=== PATIENT | male | born 1950 | race American Indian/Alaskan Native ===

== ENCOUNTER 2021-07-25 08:44 | Emergency (ER) | payer OTHER ==
[2021-07-25] MEDS ORDERED: dexAMETHasone 4 MG/ML VIAL IM ONE (09:06)
[2021-07-25] MEDS ORDERED: KETOROLAC 10 MG TAB PO ONE (09:07)
--- NOTE | 2021-07-25 09:07 | Emergency Department Report ---
ED Back Pain/Injury HPI - General Chief Complaint: Back Pain/Injury Stated Complaint: BACK PAIN Time Seen by Provider: 07/25/21 08:53 Source: patient Limitations: No Limitations - History of Present Illness Initial Comments: Patient is a very pleasant 71-year-old male that comes to the emergency room complaining of low back pain. He states that he has had low back pain since . He is a patient at the [facility], after serving in the [employer]. He states that when the pain gets this bad he usually goes up there and they give him a shot of steroids and that alleviates the pain. Patient is much younger than his stated age. He does walk with a cane. Patient denies any other symptoms. He denies any urinary or bowel symptoms. He denies any chest pain or shortness of breath. He denies fever or chills. He denies difficulty urinating, bloody urine or burning with urination. He denies any new injury or fall. Patient is on medication for his blood pressure which she thinks is lisinopril, he takes it twice a day. He did not take it this morning so his blood pressure was little bit elevated. But he denies chest pain or shortness of breath. Patient is ambulatory, nonill and nonill appearing on triage. I explained to the patient that given his age we want to make sure that we are not missing anything with regard to his back pain. He states that he had blood work and a urinalysis as part of his routine physical at [facility] 1 week ago. - Related Data Previous Rx's Medication Instructions Recorded Last Taken Type predniSONE [Deltasone] 20 mg PO DAILY #5 tablet 07/25/21 Unknown Rx traMADoL [Ultram] 50 mg PO Q6HR PRN #10 tablet 07/25/21 Unknown Rx Allergies Allergy/AdvReac Type Severity Reaction Status Date / Time No Known Allergies Allergy Verified 07/25/21 08:47 ED Review of Systems ROS: Stated complaint: BACK PAIN Other details as noted in HPI Comment: All other systems reviewed and negative Respiratory: no symptoms reported Cardiovascular: denies: chest pain, palpitations, dyspnea on exertion, orthopnea, edema, syncope, paroxysmal nocturnal dyspnea Endocrine: no symptoms reported Musculoskeletal: as per HPI, back pain ED Past Medical Hx - Past Medical History Previous Medical History?: Yes Hx Hypertension: Yes - Surgical History Past Surgical History?: No - Family History Family history: no significant - Social History Smoking Status: Never Smoker Substance Use Type: None - Medications Home Medications: Home Medications Medication Instructions Recorded Confirmed Last Taken Type predniSONE [Deltasone] 20 mg PO DAILY #5 tablet 07/25/21 Unknown Rx traMADoL [Ultram] 50 mg PO Q6HR PRN #10 tablet 07/25/21 Unknown Rx ED Physical Exam - General Limitations: No Limitations General appearance: alert, in no apparent distress - Head Head exam: Present: atraumatic, normocephalic - Eye Eye exam: Present: normal appearance - ENT ENT exam: Present: mucous membranes moist - Neck Neck exam: Present: normal inspection - Respiratory Respiratory exam: Present: normal lung sounds bilaterally. Absent: respiratory distress - Cardiovascular Cardiovascular Exam: Present: regular rate, normal rhythm. Absent: systolic murmur, diastolic murmur, rubs, gallop - GI/Abdominal GI/Abdominal exam: Present: soft, normal bowel sounds - Rectal Rectal exam: Present: deferred - Extremities Exam Extremities exam: Present: normal inspection - Back Exam Back exam: Present: normal inspection - Neurological Exam Neurological exam: Present: alert, oriented X3 - Psychiatric Psychiatric exam: Present: normal affect, normal mood - Skin Skin exam: Present: warm, dry, intact, normal color. Absent: rash ED Course Vital Signs 07/25/21 08:48 Temperature 98.8 F Pulse Rate 72 Respiratory 20 Rate Blood Pressure 168/97 O2 Sat by Pulse 97 Oximetry ED Medical Decision Making - Medical Decision Making Patient has no spine tenderness. The pain that he is having is diffuse across the lower back. No CVA tenderness Abdomen soft and nontender Neurologically intact, ambulatory with no signs and symptoms of cauda equina Patient medicated with Decadron and Toradol. He was discharged home with prednisone and 10 Ultram. I have educated him to not use those unless he is having severe pain. He can use adjuncts such as Tylenol Motrin. He verbalizes understanding. Patient being discharged home with discharge plan of care including diet, activity, meds and follow-up. [facility]. Vital Signs 07/25/21 08:48 Temperature 98.8 F Pulse Rate 72 Respiratory 20 Rate Blood Pressure 168/97 O2 Sat by Pulse 97 Oximetry - Differential Diagnosis a/c back pain Critical care attestation.: If time is entered above; I have spent that time in minutes in the direct care of this critically ill patient, excluding procedure time. ED Disposition Clinical Impression: Low back pain Qualifiers: Chronicity: unspecified Back pain laterality: unspecified Sciatica presence: without sciatica Qualified Code(s): M54.50 - Low back pain, unspecified Chronic back pain Qualifiers: Back pain location: low back pain Disposition: HOME / SELF CARE / HOMELESS Is pt being admited?: No Does the pt Need Aspirin: No Condition: Stable Instructions: Chronic Back Pain Additional Instructions: warm compresses motrin or tylenol for pain meds as ordered today [facility] to be sure you are getting better Prescriptions: predniSONE [Deltasone] 20 mg PO DAILY #5 tablet traMADoL [Ultram] 50 mg PO Q6HR PRN #10 tablet PRN Reason: Pain Referrals: RUSTY TRUJILLO MD [Staff Physician] - 3-5 Days Time of Disposition: 09:09
[2021-07-25] MEDS ORDERED: KETOROLAC 30 MG/1 ML INJ IM ONE (09:20)
[2021-07-25 09:33] VITALS: BP 166/72
== END 2021-07-25 09:32 | disposition home or self-care (01) ==
LOC: ED 08:44
DX: M54.50 Low back pain, unspecified (principal); I10 Essential (primary) hypertension; Z79.899 Other long term (current) drug therapy
CPT/HCPCS: 96372; 99282; J1100; J1885

== ENCOUNTER 2022-02-07 07:28 | Emergency (ER) | payer OTHER ==
[2022-02-07 08:54] LABS: Basophils % (Auto) 0.1 % (0.0-1.8); Eosinophils % (Auto) 0.5 % (0.0-4.3); Hematocrit 41.6 % (35.5-45.6); Hemoglobin 14.1 gm/dl (11.8-15.2); Lymphocytes # (Auto) 1.1 K/mm3 (1.2-5.4); Lymphocytes % (Auto) 13.2 % (13.4-35.0); Mean Corpuscular HGB Conc 34 % (32-34); Mean Corpuscular Volume 84 fl (84-94); Monocytes # (Auto) 0.5 K/mm3 (0.0-0.8); Monocytes % (Auto) 5.2 % (0.0-7.3); Platelet Count 177 K/mm3 (140-440); Red Blood Count 4.97 M/mm3 (3.65-5.03); Red Cell Distribution Width 14.4 % (13.2-15.2)
--- NOTE | 2022-02-07 09:06 | XRay Report ---
ABDOMEN 2 VIEW(S) INDICATION / CLINICAL INFORMATION: constipation. COMPARISON: None available. FINDINGS: TUBES / LINES: None. BOWEL GAS PATTERN: No significant abnormality. FREE AIR / EXTRALUMINAL GAS: None seen. ADDITIONAL FINDINGS: No significant additional findings. IMPRESSION: 1. No significant abnormality. Signer Name: Peña Bishop MD Signed: 02/07/2022 9:01 AM Workstation Name: [id number]
[2022-02-07 09:21] LABS: Alanine Aminotransferase 22 units/L (7-56); Albumin 4.5 g/dL (3.9-5); BUN/Creatinine Ratio 15; Blood Urea Nitrogen 20 mg/dL (9-20); Calcium 9.3 mg/dL (8.4-10.2); Hemolysis Index 2
[2022-02-07] MEDS ORDERED: LACTULOSE 20 GM/30 ML ORAL LIQD PO ONE (10:12)
--- NOTE | 2022-02-07 10:19 | Emergency Department Report ---
HPI - General Chief Complaint: Abdominal Pain Time Seen by Provider: 02/07/22 09:46 - HPI HPI: Room 17 The patient is a 71-year-old male present with a chief complaint of constipation. Patient states she came to emergency department because not been able have a bowel movement for the past 4 days. Patient states he has been using Metamucil but has not helped. Patient complains of mild lower abdominal discomfort. Patient denies nausea or vomiting ED Past Medical Hx - Past Medical History Hx Hypertension: Yes - Surgical History Additional Surgical History: Bladder mass removal (noncancerous) - Family History Family history: no significant - Social History Smoking Status: Never Smoker Substance Use Type: None - Medications Home Medications: Home Medications Medication Instructions Recorded Confirmed Last Taken Type predniSONE [Deltasone] 20 mg PO DAILY #5 tablet 07/25/21 Unknown Rx traMADoL [Ultram] 50 mg PO Q6HR PRN #10 tablet 07/25/21 Unknown Rx Docusate Sodium [Colace] 100 mg PO BID #60 capsule 02/07/22 Unknown Rx Lactulose [Cephulac] 20 gm PO QDAY PRN #90 ml 02/07/22 Unknown Rx ED Review of Systems ROS: Stated complaint: LOW BLOOD PRESSURE/DIFF VOIDING Other details as noted in HPI Constitutional: no symptoms reported Eyes: denies: eye pain ENT: denies: throat pain Respiratory: no symptoms reported Cardiovascular: denies: chest pain Endocrine: no symptoms reported Gastrointestinal: abdominal pain, constipation. denies: nausea, vomiting Genitourinary: denies: dysuria Musculoskeletal: denies: back pain Neurological: denies: headache Physical Exam - Physical Exam Vital Signs: Vital Signs 02/07/22 07:43 Temperature 98.9 F Pulse Rate 76 Respiratory 18 Rate Blood Pressure 120/74 [Left] O2 Sat by Pulse 99 Oximetry Physical Exam: GENERAL: The patient is well-developed well-nourished male sitting on stretcher not appearing to be in acute distress. [] HEENT: Normocephalic. Atraumatic. Extraocular motions are intact. Patient has moist mucous membranes. NECK: Supple. Trachea midline CHEST/LUNGS: Clear to auscultation. There is no respiratory distress noted. HEART/CARDIOVASCULAR: Regular. There is no tachycardia. There is no gallop rub or murmur. ABDOMEN: Abdomen is soft, nontender. Patient has normal bowel sounds. There is no abdominal distention. SKIN: There is no rash. There is no edema. There is no diaphoresis. NEURO: The patient is awake, alert, and oriented. The patient is cooperative. The patient has no focal neurologic deficits. The patient has normal speech. GCS 15 MUSCULOSKELETAL: There is no evidence of acute injury. ED Course Vital Signs 02/07/22 07:43 Temperature 98.9 F Pulse Rate 76 Respiratory 18 Rate Blood Pressure 120/74 [Left] O2 Sat by Pulse 99 Oximetry - Reevaluation(s) Reevaluation #1: 02/07/22 12:47 Patient had a large bowel movement status post lactulose and feels improved ED Medical Decision Making - Lab Data Result diagrams: 02/07/22 08:43 02/07/22 08:43 Laboratory Tests 02/07/22 02/07/22 02/07/22 08:43 08:43 Unknown WBC 8.6 RBC 4.97 Hgb 14.1 Hct 41.6 MCV 84 MCH 28 MCHC 34 RDW 14.4 Plt Count 177 Lymph % (Auto) 13.2 L Gilchrist % (Auto) 5.2 Eos % (Auto) 0.5 Baso % (Auto) 0.1 Lymph # (Auto) 1.1 L Gilchrist # (Auto) 0.5 Eos # (Auto) 0.0 Baso # (Auto) 0.0 Seg Neutrophils % 81.0 H Seg Neutrophils # 7.0 Sodium 147 H Potassium 4.1 Chloride 108.9 H Carbon Dioxide 27 Anion Gap 15 BUN 20 Creatinine 1.3 Estimated GFR > 60 BUN/Creatinine Ratio 15 Glucose 125 H Calcium 9.3 Total Bilirubin 0.40 AST 29 ALT 22 Alkaline Phosphatase 104 Total Protein 6.6 Albumin 4.5 Albumin/Globulin Ratio 2.1 Urine Color Anjelica Urine Turbidity Clear Specific Procious (Man) 1.025 Ur Protein (Man) 1+ Ur Ketones (Man) Negative Urine Bilirubin (Man) Negative Urine WBC (Auto) < 1.0 Urine RBC (Auto) < 1.0 Urine RBC (Manual) Negative - Radiology Data Radiology results: report reviewed (2 view abdominal x-ray), image reviewed (2 view abdominal x-ray) interpreted by me: 2 view abdominal [id number] bowel gas pattern. [facility] [address] [place] [address] XRay Report Signed Patient: RADHA MCKEON MR#: [id number] : 1950 Acct:[id number] Age/Sex: 71 / M ADM Date: 02/07/22 Loc: ED Attending Dr: Ordering Physician: KARY DUMONT MD Date of Service: 02/07/22 Procedure(s): XR abdomen 1V ap Accession Number(s): [id number] cc: KARY DUMONT MD Fluoro Time In Minutes: ABDOMEN 2 VIEW(S) INDICATION / CLINICAL INFORMATION: constipation. COMPARISON: None available. FINDINGS: TUBES / LINES: None. BOWEL GAS PATTERN: No significant abnormality. FREE AIR / EXTRALUMINAL GAS: None seen. ADDITIONAL FINDINGS: No significant additional findings. IMPRESSION: 1. No significant abnormality. Signer Name: Peña Bishop MD Signed: 02/07/2022 9:01 AM Workstation Name: [id number] Transcribed By: ASHLEY Dictated By: Peña Bishop MD Electronically Authenticated By: Peña Bishop MD Signed Date/Time: 02/07/22900 DD/ 8 TD/TT: - Differential Diagnosis Constipation Critical care attestation.: If time is entered above; I have spent that time in minutes in the direct care of this critically ill patient, excluding procedure time. ED Disposition Clinical Impression: Constipation Disposition: HOME / SELF CARE / HOMELESS Is pt being admited?: No Does the pt Need Aspirin: No Condition: Stable Instructions: Constipation, Adult, [id number] Additional Instructions: Return to the emergency department should you develop worsening symptoms, inability to tolerate food or liquids, high fever or any other concerns Prescriptions: Lactulose [Cephulac] 20 gm PO QDAY PRN #90 ml PRN Reason: Constipation Docusate Sodium [Colace] 100 mg PO BID #60 capsule Referrals: ELENITA LARA MD [Staff Physician] - 3-5 Days Time of Disposition: 12:49
[2022-02-07 10:39] LABS: RBC,Urine < 1.0 /HPF (0.0-6.0)
[2022-02-07 10:41] LABS: Color,Urine Amber (Yellow); WBC,Urine < 1.0 /HPF (0.0-6.0)
[2022-02-07 13:52] VITALS: BP 171/98
== END 2022-02-07 13:53 | disposition home or self-care (01) ==
LOC: ED 07:28
DX: K08.89 Other specified disorders of teeth and supporting structures (principal); I10 Essential (primary) hypertension; Z79.899 Other long term (current) drug therapy
CPT/HCPCS: 36415; 74018; 80053; 81001; 85025; 99284